=== PATIENT | female | born 1985 | race Caucasian/White ===

== ENCOUNTER 2017-02-25 20:31 | Emergency (ER) | payer SELFPAY ==
[2017-02-25 17:41] LABS: BASOPHILS 0.4 %; BASOPHILS ABSOLUTE 0.03 10/3/uL (0.0-0.16); EOSINOPHILS 1.9 %; EOSINOPHILS ABSOLUTE 0.16 10/3/uL (0.0-0.53); HEMOGLOBIN 15.2 g/dL (12.0-16.0); IMMATURE GRANULOCYTES 0.2 %; IMMATURE GRANULOCYTES ABSOLUTE 0.02 10/3/uL (0.0-0.11); LYMPHOCYTES 20.9 %; LYMPHOCYTES ABSOLUTE 1.78 10/3/uL (0.67-4.30); MEAN CORPUS HGB CONC 33.8 g/dL (32.0-36.0); MEAN CORPUSCULAR HEMOGLOB 30.6 pg (26.0-34.0); MEAN CORPUSCULAR VOLUME 90.7 fL (80-100); MEAN PLATELET VOLUME 9.8 fL (9.2-13.0); MONOCYTES 4.7 %; NEUTROPHILS 71.9 %; NEUTROPHILS ABSOLUTE 6.11 10/3/uL (2.02-8.40); PLATELET COUNT 260 10/3/uL (150-400); RBC DISTRIBUTION WIDTH 12.5 % (12.0-16.0); RED CELL COUNT 4.96 10/6/uL (4.0-5.6); WHITE BLOOD CELLS 8.5 10/3/uL (4.5-10.5)
[2017-02-25 17:42] LABS: MANUAL DIFF NO %
[2017-02-25 17:55] LABS: A/G RATIO 1.3 (0.7-1.9); ALBUMIN 4.3 G/DL (3.5-5.0); CHLORIDE, SERUM 106 MMOL/L (96-112); CREATININE 0.79 MG/DL (0.55-1.02); GFR AFRICAN AMERICAN 116 ML/MIN (>=60); GFR NON AFRICAN AMERICAN 100 ML/MIN (>=60); GLOBULIN 3.3 G/DL (2.5-4.1); SGOT(AST) 20 U/L (5-40); SGPT(ALT) 25 U/L (5-65); SODIUM, SERUM 140 MMOL/L (135-148); TOTAL BILIRUBIN 0.6 MG/DL (0-1.2); TOTAL PROTEIN 7.6 G/DL (6.0-8.5)
[2017-02-25 17:56] LABS: ALKALINE PHOSPHATASE 60 U/L (45-117); BUN (BLOOD UREA NITROGEN) 10 MG/DL (6-23); CALCIUM, SERUM 9.8 MG/DL (8.5-10.4); CO2 (CARBON DIOXIDE) 28 MMOL/L (24-34); GLUCOSE, SERUM 90 MG/DL (60-99)
[2017-02-25 18:03] LABS: INTERNATIONAL NORMAL RATI 1.1 UNITS (-); PARTIAL THROMBO TIME 36.1 SEC (22.5-37.2); PROTIME (NOT ORD) 14.3 SEC (12.0-14.5)
[~2017-02-25 20:31] MED LIST: CIP5 PO; CORTEF5 PO; DEPO-ESTRAD5 MG/1 ML IM; DITRO5 PO; FLOMAX4 PO; IBU400 PO; KLONO1 PO; KLONO5 PO; MARI5 PO; NEUR300 PO; PERCOCET1 TA2 PO; PERCOCET1 TA4 PO; PYR100B PO; ROCEPHIN IM; VENTOLIN HFA INH; Z-PAK PO; ZANAFLEX 4 MG TA4 MG PO; ZANTAC 75 PO; ZOFRAN4 PO; ZOFRAN8 PO
[2017-02-25 20:35] LABS: ASCORBIC ACID (UR NOT ORDER) NEG (NEG); BILIRUBIN, URINE NEGATIVE (NEG); ER URINALYSIS TAT 0 Hrs 07 Mins; KETONE, URINE NEGATIVE (NEG); NITRITE (URINE) NEG (NEG); WBC (NOT ORDERED) (RFLEX) 1 (0-5)
[2017-02-25 20:37] LABS: LEUKOCYTE ESTERASE(NOT OR TRACE (NEG)
[2017-02-25] MEDS ORDERED: PRILOSEC OTC20 MG PO (22:48)
[2017-02-25] MEDS ORDERED: [UNRECOGNIZED DRUG - OTHER] PO (22:49)
[2017-02-25] MEDS ORDERED: CORTEF20 MG PO (22:51)
[2017-02-25] MEDS ORDERED: CORTEF5 PO (22:52)
[2017-02-25] MEDS ORDERED: ZOL50 PO (22:55)
[2017-02-25] MEDS ORDERED: KLONO1 PO (22:55)
[2017-02-25] MEDS ORDERED: VENTOLIN HFA INH (22:56)
[2017-02-25] MEDS ORDERED: ZANAFLEX 4 MG TA4 MG PO (22:56)
== END 2017-02-26 00:13 | disposition home or self-care (01) ==
LOC: ER 20:31
PROVIDERS: Emergency Medicine; Nurse Practitioner Acute Care
DX: K64.0 First degree hemorrhoids (principal); J45.909 Unspecified asthma, uncomplicated; Z87.442 Personal history of urinary calculi; Z88.6 Allergy status to analgesic agent; Z88.2 Allergy status to sulfonamides; Z88.5 Allergy status to narcotic agent; Z79.899 Other long term (current) drug therapy; Z88.8 Allergy status to other drugs, medicaments and biological substances
CPT/HCPCS: 36415; 71010; 74177; 80053; 81001; 83605; 84145; 84703; 85025; 85610; 85730; 86850; 86900; 86901; 87040; 93005; 96374; 96375; 99285; J1170; J2405; Q9967